=== PATIENT | male | born 1985 | race African-American/Black ===

== ENCOUNTER 2023-02-13 21:56 | Emergency (ER) | payer OTHER, SELFPAY ==
[2023-02-13] MEDS ORDERED: tiZANidine HCl 4 MG TAB PO SCH (22:30)
== END 2023-02-13 22:53 | disposition home or self-care (01) ==
LOC: ERS 21:56
DX: M62.838 Other muscle spasm (principal); I10 Essential (primary) hypertension
CPT/HCPCS: 99281